=== PATIENT | female | born 1995 | race Caucasian/White ===

== ENCOUNTER 2016-10-09 18:02 | Emergency (ER) | payer OTHER ==
[~2016-10-09] VITALS: Ht 149.9 cm; Wt 102.1 kg
[~2016-10-09 18:02] MED LIST: GUAIFENESIN-COD10 ML PO
--- NOTE | 2016-10-09 18:25 | ED UPPER/LOWER EXTREMITY COMPL ---
History of Present Illness General Chief Complaint: Lower Extremity Injury Stated Complaint: L KNEE PAIN Source: patient, family, old records Exam Limitations: no limitations Vital Signs & Intake/Output Vital Signs & Intake/Output Vital Signs Date Time Temp Pulse Resp B/P Pulse O2 O2 Flow FiO2 Ox Delivery Rate 10/093 97.4 85 18 146/93 98 10/09 1805 97.8 97 20 132/87 96 Room Air Allergies Coded Allergies: NO KNOWN ALLERGIES (02/04/12) Reconcile Medications No Known Home Medications Triage Note: PT TO ED C/O LEFT KNEE PAIN. 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 MEDICATED WITH MOTRIN IN TRIAGE. Triage Nurses Notes Reviewed? yes Onset: Abrupt Duration: hour(s): (1), constant Timing: recent history Severity: moderate Severity Numbers: 7 Pain/Injury Location: Left: Knee. Method of Injury: twisted Modifying Factors: Improves With: rest. Worsens With: movement. Associated Symptoms: none : No Patient currently breastfeeds: No HPI: 21-year-old female presents emergency room complaining of sudden onset left knee pain aching throbbing worse with range of motion better at rest that came on after she states she felt a twisting and "pop" in her left knee while doing jumping jacks at [employer]. She states initially she was able to ambulate however has been unable to bear weight on the knee since. She denies any hip foot or ankle pain there is no fall to the ground no other injury patient is medicated Motrin in triage. There are no other modifying factors or associated symptoms. ([facility] SO[facility]) Past History Travel History Traveled to [place] past 21 day No Medical History Any Pertinent Medical History? see below for history Neurological: NONE EENT: NONE Cardiovascular: NONE Respiratory: asthma Gastrointestinal: NONE Hepatic: NONE Renal: NONE Musculoskeletal: NONE Psychiatric: NONE Endocrine: NONE Surgical History Surgical History: non-contributory Psychosocial History What is your primary language Chilean Tobacco Use: Never used ETOH Use: denies use Illicit Drug Use: denies illicit drug use Family History Hx Contributory? No ([facility] SO[facility]) Review of Systems Review of Systems Constitutional: Reports: see HPI. All Other Systems: Reviewed and Negative Comments Review of systems: See HPI, All other systems negative. Constitutional, no chills no fever, no malaise HEENT: no sore throat no congestion, no ear pain Cardiovascular: No chest pain , no palpitation , Skin, no jaundice no rashes, no change in skin Respiratory: No dyspnea no cough no sputum GI: No nausea no vomiting, no diarrhea, no bloating/constipation : No dysuria No hematuria, no frequency, no discharge Muscle skeletal: joint pain, no joint swelling, no back pain, no neck pain, Neurologic: No numbness no headache Psych: No stress Heme/endocrine: No bruising no bleeding Immunology: No lymphadenopathy ([facility] SO[facility]) Physical Exam Physical Exam General Appearance: well developed/nourished, no apparent distress, alert Comments: Well-developed well-nourished patient in no apparent distress. HEENT: Atraumatic, extraocular motion intact Neck: Supple, FROM Back: FROM, Cardiovascular: Regular rate and rhythms no murmurs rubs Respiratory: No respiratory distress. Patient speaking in full complete sentences. Breath sounds clear to auscultation bilaterally: NO W/R/R Upper Extremities: full range of motion Hip/Pelvis: Atraumatic/Stable. FROM. No pain with pelvic compression Knee: Atraumatic/stable. Limited range of motion secondary to pain tender to palpation over the anterior knee, no ecchymosis, No joint swelling, no effusion. No laxity. Negative shy/anterior drawer test. No pain with ROM Leg: Atraumatic. Nontender. It did tenderness No edema, 5 out of 5 strength in the lower extremity, normal dorsiflexion of great toe bilaterally, gross sensation is intact, patellar tendon reflex 2+ bilaterally. Ankle/Foot: Atraumatic/stable. Skin intact. FROM. No swelling, no effusion. No laxity on exam Pulses: Normal/equal DP/PT pulses bilaterally. Brisk cap refill Neuro: Alert and oriented x3 Skin: Warm & dry;No appreciable rash on exposed skin Psych: Mood affect normal, normal memory normal judgment. ([facility] SO[facility]) Progress Differential Diagnosis: contusion, dislocation, DVT, fracture, gout, sprain, tendon injury Plan of Care: Orders Procedure Date/time Status Durable Medical Equipment 10/09 1901 Active Durable Medical Equipment 10/09 1899 Active X-ray ordered Discussed the patient and her mother x-ray results needed for supportive care Rice leg immobilizer crutches were provided advised close follow-up with primary care Wednesday they feel comfortable with this plan ([facility] SO[facility]) Diagnostic Imaging: Viewed by Me: Radiology Read. Discussed w/RAD: Radiology Read. Radiology Impression: PATIENT: DELANEY BAZAN PRESENT AGE: 21 PATIENT ACCOUNT NO: [id number] : 96 LOCATION: [facility] ORDERING PHYSICIAN: [facility] G[facility] SERVICE DATE: 10/09/16 EXAM TYPE: RAD - XRY-KNEE COMPLETE LEFT EXAMINATION: XR KNEE, LEFT CLINICAL INFORMATION: Rule out fracture. Twisting injury. Pain. COMPARISON: None TECHNIQUE: Four views of the left knee. FINDINGS: No acute fracture or dislocation is identified. The articular surfaces are normal. No joint effusion is seen. The soft tissues are unremarkable. IMPRESSION: No acute radiographic abnormality of the left knee. DICTATED BY: DOROTHY WARREN MD DATE/TIME DICTATED:10/09/161852 MANAGER BANQUET:SANDRA DATE/TIME TRANSCRIBED:10/09/161852 CONFIDENTIAL, DO NOT COPY WITHOUT APPROPRIATE AUTHORIZATION. <Electronically signed in Other Vendor System> SIGNED BY: DOROTHY WARREN MD 10/09/161856 (MER[facility] SOOD) Departure Departure Time of Disposition: 1900 Disposition: HOME OR SELF CARE Condition: Stable Clinical Impression Primary Impression: Knee sprain Referrals: UNKNOWN (PCP/Family) Additional Instructions: Rest ice Tylenol Motrin for pain keep leg elevated crutches when ambulatory, leg immobilizer as discussed. Return to the emergency room with any concerns. Departure Forms: Customer Survey General Discharge Information Prescriptions: Current Visit Scripts No Known Home Medications ([facility] SOOD) PA/CHERRY GROWER Co-Sign Statement Statement: ED Attending supervision documentation- [] I saw and evaluated the patient. I have also reviewed all the pertinent lab results and diagnostic results. I agree with the findings and the plan of care as documented in the PA's/CHERRY GROWER's documentation. [X] I have reviewed the ED Record and agree with the PA's/CHERRY GROWER's documentation. [] Additions or exceptions (if any) to the PAs/CHERRY GROWER's note and plan are summarized below: [] (ROMERO MICHEL DO
--- NOTE | 2016-10-09 18:57 | RADIOLOGY REPORT ---
EXAMINATION: XR KNEE, LEFT CLINICAL INFORMATION: Rule out fracture. Twisting injury. Pain. COMPARISON: None TECHNIQUE: Four views of the left knee. FINDINGS: No acute fracture or dislocation is identified. The articular surfaces are normal. No joint effusion is seen. The soft tissues are unremarkable. IMPRESSION: No acute radiographic abnormality of the left knee.
[2016-10-09 19:23] VITALS: BP 146/93
== END 2016-10-09 20:16 ==
LOC: ERH 18:02
DX: S83.92XA Sprain of unspecified site of left knee, initial encounter (principal); X58.XXXA Exposure to other specified factors, initial encounter; Y93.A3 Activity, aerobic and step exercise; Y92.9 Unspecified place or not applicable
CPT/HCPCS: 73562-LT